=== PATIENT | male | born 1970 | race Caucasian/White ===

== ENCOUNTER 2021-05-17 00:03 | Emergency (ER) | payer MEDICAID ==
[~2021-05-17] VITALS: Ht 188 cm; Wt 95.0 kg
[2021-05-17 01:28] LABS: BASOPHILS % 1.1 % (0.0-2.0); EOSINOPHILS % 1.1 % (0.0-5.0); HEMATOCRIT. 43.4 % (42.0-52.0); HEMOGLOBIN. 15.4 g/dL (14.0-18.0); LYMPHOCYTES % 34.5 % (20.0-50.0); MEAN CORPUSCULAR HEMOGLOBIN 41.6 pg (28.0-32.0); MEAN CORPUSCULAR VOLUME 117.6 fL (80.0-94.0); MEAN PLATELET VOLUME 7.9 fl (7.4-10.4); NEUTROPHILS % 56.3 % (40.0-76.0); PLATELET 385 x1000/uL (130-400); RED BLOOD CELL COUNT 3.69 mill/uL (4.7-6.1); RED CELL DISTRIBUTION WIDTH 13.9 % (11.6-14.6)
[2021-05-17 01:33] LABS: CHLORIDE 103 mEq/L (98-107)
[2021-05-17 01:37] LABS: ETHANOL BLOOD 169 mg/dL
[2021-05-17 03:12] LABS: *AMPHETAMINES SCREEN URINE NEGATIVE (NEGATIVE); *BARBITURATES SCREEN URINE NEGATIVE (NEGATIVE); *BENZODIAZEPINES SCREEN URINE NEGATIVE (NEGATIVE); *COCAINE SCREEN URINE NEGATIVE (NEGATIVE)
[2021-05-17 03:13] LABS: CANNABINOID URINE SCREEN NEGATIVE (NEGATIVE); METHADONE URINE SCREEN NEGATIVE (NEGATIVE); OPIATES URINE SCREEN NEGATIVE (NEGATIVE); PHENCYCLIDINE URINE SCREEN NEGATIVE (NEGATIVE)
[2021-05-17 03:23] LABS: PLATELET ESTIMATE NORMAL
[2021-05-17] MEDS: CITALOPRAM HYDROBROMIDE 10MG TABLET PO SCH (10:45)
[2021-05-18] MEDS: CITALOPRAM HYDROBROMIDE 10MG TABLET PO SCH (09:50)
[2021-05-18 18:49] VITALS: BP 160/73
== END 2021-05-18 20:20 ==
LOC: ER 00:03
DX: T47.0X2A Poisoning by histamine H2-receptor blockers, intentional self-harm, initial encounter (principal); F32.9 Major depressive disorder, single episode, unspecified; Z63.79 Other stressful life events affecting family and household; R00.0 Tachycardia, unspecified; I10 Essential (primary) hypertension; Y92.89 Other specified places as the place of occurrence of the external cause; Z20.822 Contact with and (suspected) exposure to COVID-19; Z75.1 Person awaiting admission to adequate facility elsewhere; F10.10 Alcohol abuse, uncomplicated; Y90.6 Blood alcohol level of 120-199 mg/100 ml
CPT/HCPCS: 36415; 80053; 80305; 80307; 80320; 80329; 85025; 87426; 93005; 99285; C9803; U0003; U0005; G0480